=== PATIENT | male | born 1975 | race Caucasian/White ===

== ENCOUNTER 2020-04-01 13:20 | Inpatient (IN) | payer MEDICAID ==
[~2020-04-01] VITALS: Ht 172.7 cm; Wt 49.8 kg
[2020-04-01 14:43] LABS: BASOPHILS % (AUTO) 1 % (0-1); EOSINOPHILS % (AUTO) 1 % (1-7); LYMPHOCYTES % (AUTO) 40 % (22-44); MEAN CORPUSCULAR HEMOGLOBIN 35.2 pg (27.5-34.5); MEAN CORPUSCULAR HGB CONC 33.9 g/dL (33.2-36.2); MONOCYTES % (AUTO) 8 % (2-9); NEUTROPHILS % (AUTO) 49 % (42-75); PLATELET COUNT 106 x10^3/uL (130-400); RED BLOOD COUNT 3.51 x10^6/uL (4.38-5.82); RED CELL DISTRIBUTION WIDTH 14.5 % (9.4-14.8)
[2020-04-01 14:46] LABS: MD NO
[2020-04-01 14:53] LABS: ALBUMIN 4.4 g/dL (3.4-5.0); ANION GAP 8 mmol/L (5-15); CALCIUM 9.2 mg/dL (8.5-10.1); CHLORIDE 105 mmol/L (98-107)
[2020-04-01 14:57] LABS: ALANINE AMINOTRANSFERASE 87 U/L (12-78); ALKALINE PHOSPHATASE 162 U/L (45-117); BILIRUBIN,TOTAL 0.5 mg/dL (0.2-1.0); CREATININE 0.86 mg/dL (0.7-1.3); TOTAL PROTEIN 8.7 g/dL (6.4-8.2)
[2020-04-01 15:01] LABS: MICROSCOPIC AUTO
--- NOTE | 2020-04-01 15:15 | NUR ---
REPORT FROM ESHA MCGINNIS
--- NOTE | 2020-04-01 15:38 | NUR ---
PT RESTING IN BED, CALL LIGHT IN REACH. BLANKET PROVIDED.
--- NOTE | 2020-04-01 16:45 | NUR ---
ASSUMED CARE OF PT, PT RESTING ON GURNEY, CALL LIGHT WITHIN REACH.
--- NOTE | 2020-04-01 17:05 | NUR ---
REPORT RECIEVED FROM RAS CARMONA. ASSUMED CARE
[2020-04-01] MEDS ORDERED: SODIUM CHLORIDE FLUSH 10ML SYR IVF ONE (18:30)
--- NOTE | 2020-04-01 18:44 | NUR ---
PT AMBULATED TO BATHROOM. STEADY GAIT
[2020-04-01] MEDS ORDERED: LABETALOL 5MG/ML, 20ML IVPush PRN (20:00)
[2020-04-01] MEDS ORDERED: LACTATED RINGERS 1,000 ML IV SCH (20:00)
[2020-04-01] MEDS ORDERED: BISACODYL 10 MG SUPP PR PRN (20:00)
[2020-04-01] MEDS ORDERED: DIPHENHYDRAMINE 25 MG CAPSULE PO PRN (20:00)
[2020-04-01] MEDS ORDERED: ENALAPRILAT 1.25 MG/ML, 2ML IVPush PRN (20:00)
[2020-04-01] MEDS ORDERED: POLYETHYLENE GLYCOL 17 GM PACKET PO PRN (20:00)
[2020-04-01] MEDS ORDERED: ACETAMINOPHEN 325 MG TABLET PO PRN (20:00)
[2020-04-01] MEDS ORDERED: IBUPROFEN 600 MG TABLET PO PRN (20:00)
[2020-04-01] MEDS ORDERED: DOCUSATE 100 MG CAPSULE PO PRN (20:00)
[2020-04-01 20:45] VITALS: BP 116/88
[2020-04-01] MEDS ORDERED: hydrOXyzine 50MG TABLET PO PRN (21:00)
[2020-04-01] MEDS ORDERED: THIAMINE 100MG TABLET PO ONE (21:00)
[2020-04-01] MEDS: NYSTATIN 500,000 UNITS/5 ML UDC PO SCH (21:00)
[2020-04-01] MEDS ORDERED: OMEPRAZOLE 20 MG CAPSULE.DR PO ONE (21:00)
[2020-04-01] MEDS ORDERED: TRAZODONE 100MG TABLET PO SCH (21:00)
[2020-04-01] MEDS ORDERED: HYDR25PO5 PO (21:04)
[2020-04-01] MEDS ORDERED: FEXO180T72 PO (21:04)
[2020-04-01] MEDS ORDERED: TRAZ-175 PO (21:04)
[2020-04-01] MEDS ORDERED: OMEP-110 PO (21:04)
[2020-04-01] MEDS: HEPARIN 5,000 UNITS/ML, 1ML SQ SCH (22:15)
[2020-04-01] MEDS: ONDANSETRON 2MG/ML, 2ML IVPush PRN (22:20)
[2020-04-01] MEDS: FOLIC ACID 1 MG TABLET PO SCH (22:21)
[2020-04-02 00:26] VITALS: BP 119/76
[2020-04-02] MEDS: ONDANSETRON 2MG/ML, 2ML IVPush PRN ×2 (05:15→20:07)
[2020-04-02] MEDS: HEPARIN 5,000 UNITS/ML, 1ML SQ SCH (05:15)
[2020-04-02] MEDS: NYSTATIN 500,000 UNITS/5 ML UDC PO SCH ×4 (05:16→20:34)
[2020-04-02 05:45] LABS: BASOPHILS % (AUTO) 1 % (0-1); EOSINOPHILS % (AUTO) 0 % (1-7); LYMPHOCYTES % (AUTO) 32 % (22-44); MEAN PLATELET VOLUME 8.3 fL (7.4-10.4); MONOCYTES % (AUTO) 6 % (2-9); NEUTROPHILS % (AUTO) 60 % (42-75); PLATELET COUNT 93 x10^3/uL (130-400); RED BLOOD COUNT 3.43 x10^6/uL (4.38-5.82); RED CELL DISTRIBUTION WIDTH 14.6 % (9.4-14.8)
[2020-04-02 05:50] LABS: ALANINE AMINOTRANSFERASE 77 U/L (12-78); ALBUMIN 4.4 g/dL (3.4-5.0); ANION GAP 15 mmol/L (5-15); CALCIUM 9.8 mg/dL (8.5-10.1); CHLORIDE 104 mmol/L (98-107)
[2020-04-02 05:52] LABS: ALKALINE PHOSPHATASE 148 U/L (45-117); BILIRUBIN,TOTAL 1.1 mg/dL (0.2-1.0); CREATININE 0.87 mg/dL (0.7-1.3); TOTAL PROTEIN 8.8 g/dL (6.4-8.2)
[2020-04-02 05:53] LABS: MD NO
[2020-04-02] MEDS ORDERED: MAGNESIUM SULFATE PMX 2GM/50ML 50 ML IV ONE (07:00)
[2020-04-02] MEDS ORDERED: LORazepam 2 MG/ML, 1ML IV PRN ×2 (08:00)
[2020-04-02] MEDS ORDERED: ONDANSETRON 2MG/ML, 2ML IVPush ONE (08:00)
[2020-04-02] MEDS ORDERED: LORazepam 0.5MG TABLET PO PRN (08:00)
[2020-04-02] MEDS ORDERED: LORazepam 1MG TABLET PO PRN ×2 (08:00)
[2020-04-02 08:03] VITALS: BP 157/87
[2020-04-02] MEDS: SENNA/DOCUSATE TABLET PO SCH (11:41)
[2020-04-02] MEDS: FOLIC ACID 1 MG TABLET PO SCH (11:42)
[2020-04-02] MEDS: PANTOPRAZOLE 40 MG IV IVPush SCH (11:42)
[2020-04-02] MEDS: POTASSIUM CHLORIDE 20 MEQ, MAGNESIUM SULFATE 1 GM, FOLIC ACID 1 MG, THIAMINE 200 MG, MV... IV SCH (11:56)
[2020-04-02 13:58] VITALS: BP 152/86
[2020-04-02] MEDS: CEFTRIAXONE PMX 2GM/50ML 50 ML IVPB SCH (14:36)
[2020-04-02] MEDS: LORazepam 2 MG/ML, 1ML IV PRN ×2 (15:06→20:42)
[2020-04-02] MEDS: METRONIDAZOLE PMX 500MG/100ML 100 ML IV SCH (15:50)
[2020-04-02 19:47] VITALS: BP 126/83
[2020-04-02] MEDS ORDERED: LACTATED RINGERS 1,000 ML IV SCH (20:00)
[2020-04-02] MEDS ORDERED: HEPARIN 5,000 UNITS/ML, 1ML SQ SCH (20:00)
[2020-04-02] MEDS: KETOROLAC 30 MG/1 ML IV PRN (20:34)
[2020-04-03] MEDS: LORazepam 2 MG/ML, 1ML IV PRN ×8 (00:02→23:16)
[2020-04-03] MEDS: METRONIDAZOLE PMX 500MG/100ML 100 ML IV SCH ×3 (00:22→16:17)
[2020-04-03 01:20] VITALS: BP 134/84
[2020-04-03] MEDS: NYSTATIN 500,000 UNITS/5 ML UDC PO SCH ×4 (04:45→21:00)
[2020-04-03] MEDS: KETOROLAC 30 MG/1 ML IV PRN (04:45)
[2020-04-03] MEDS: NICOTINE 14MG/24 HR PATCH.TD24 TD SCH ×2 (05:18→08:49)
[2020-04-03] MEDS: D5%-0.9% NACL 1,000 ML IV SCH (06:47)
[2020-04-03] MEDS ORDERED: MAGNESIUM SULFATE PMX 4GM/100M 100 ML IV ONE (07:30)
[2020-04-03 08:04] LABS: BASOPHILS % (AUTO) 0 % (0-1); EOSINOPHILS % (AUTO) 1 % (1-7); LYMPHOCYTES % (AUTO) 20 % (22-44); MEAN CORPUSCULAR HEMOGLOBIN 35.6 pg (27.5-34.5); MEAN PLATELET VOLUME 8.6 fL (7.4-10.4); MONOCYTES % (AUTO) 7 % (2-9); NEUTROPHILS % (AUTO) 72 % (42-75); PLATELET COUNT 79 x10^3/uL (130-400); RED BLOOD COUNT 3.25 x10^6/uL (4.38-5.82); RED CELL DISTRIBUTION WIDTH 14.4 % (9.4-14.8)
[2020-04-03 08:08] VITALS: BP 153/99
[2020-04-03 08:13] LABS: MD NO
[2020-04-03 08:14] LABS: ALANINE AMINOTRANSFERASE 63 U/L (12-78); ALBUMIN 4.2 g/dL (3.4-5.0); ANION GAP 10 mmol/L (5-15); CALCIUM 9.8 mg/dL (8.5-10.1); CHLORIDE 109 mmol/L (98-107); CREATININE 0.91 mg/dL (0.7-1.3)
[2020-04-03 08:18] LABS: PROTHROMBIN TIME 10.6 Seconds (9.6-11.5)
[2020-04-03 08:40] LABS: ALKALINE PHOSPHATASE 124 U/L (45-117); TOTAL PROTEIN 8.2 g/dL (6.4-8.2)
[2020-04-03] MEDS: FOLIC ACID 1 MG TABLET PO SCH (08:48)
[2020-04-03] MEDS: SENNA/DOCUSATE TABLET PO SCH (08:49)
[2020-04-03] MEDS: PANTOPRAZOLE 40 MG IV IVPush SCH (08:59)
[2020-04-03] MEDS ORDERED: THIAMINE 200 MG in SODIUM CHLORIDE 0.9% 50 ML IV ONE (10:30)
[2020-04-03] MEDS: POTASSIUM CHLORIDE 20 MEQ, MAGNESIUM SULFATE 1 GM, FOLIC ACID 1 MG, THIAMINE 200 MG, MV... IV SCH (10:48)
[2020-04-03] MEDS ORDERED: CHLORHEXIDINE 15 ML UDC ONE (11:18)
[2020-04-03] MEDS ORDERED: CHLORHEXIDINE 15 ML UDC MM ONE (11:30)
[2020-04-03] MEDS ORDERED: MIDAZOLAM 1 MG/ML, 2ML ONE (11:33)
[2020-04-03] MEDS ORDERED: FENTANYL PF 250 MCG/5ML ONE (11:33)
[2020-04-03] MEDS ORDERED: PROMETHAZINE 25 MG/ML, 1ML IVPush PRN (12:00)
[2020-04-03] MEDS ORDERED: DIPHENHYDRAMINE 50 MG/ML, 1ML IVPush PRN (12:00)
[2020-04-03] MEDS ORDERED: FENTANYL PF 100 MCG/2ML IV PRN (12:00)
[2020-04-03] MEDS ORDERED: HYDROmorphone 1 MG/ML, 1ML INJ IVPush PRN (12:00)
[2020-04-03] MEDS ORDERED: OXYcodone 5 MG/5 ML ORAL.SOL UDC PO PRN (12:00)
[2020-04-03] MEDS ORDERED: MEPERIDINE/PF 25MG/0.5ML IVPush PRN (12:00)
[2020-04-03] MEDS ORDERED: HALOPERIDOL 5 MG/ML IV PRN (12:00)
[2020-04-03] MEDS ORDERED: hydrALAzine 20 MG/ML, 1ML IV PRN (12:00)
[2020-04-03] MEDS ORDERED: ROCURONIUM 10MG/ML,5ML ONE (12:02)
[2020-04-03] MEDS ORDERED: DEXAMETHASONE 4 MG/ML, 1ML ONE (12:02)
[2020-04-03] MEDS ORDERED: SUCCINYLCHOLINE 20 MG/ML, 10ML ONE (12:02)
[2020-04-03] MEDS ORDERED: ONDANSETRON 2MG/ML, 2ML ONE (12:02)
[2020-04-03] MEDS ORDERED: PROPOFOL 10 MG/ML, 20ML ONE (12:02)
[2020-04-03] MEDS ORDERED: KETOROLAC 30 MG/1 ML ONE (12:13)
[2020-04-03] MEDS ORDERED: BUPIVACAINE/PF 0.25% INFIL ONE (12:18)
[2020-04-03] MEDS ORDERED: SUGAMMADEX 200 MG/2 ML IVPush ONE (12:19)
[2020-04-03] MEDS ORDERED: TRANEXAMIC ACID 100 MG/ML, 10ML ONE (12:50)
[2020-04-03] MEDS ORDERED: LABETALOL 5MG/ML, 20ML ONE (13:11)
[2020-04-03] MEDS: LABETALOL 5MG/ML, 20ML IV PRN ×3 (13:13→13:37)
[2020-04-03] MEDS ORDERED: morphine SULFATE 10 MG/ML, 1ML IV PRN (14:30)
[2020-04-03] MEDS: CEFTRIAXONE PMX 2GM/50ML 50 ML IVPB SCH (14:50)
[2020-04-03 15:54] VITALS: BP 124/92
[2020-04-03 19:49] VITALS: BP 88/71
[2020-04-03] MEDS: ONDANSETRON 2MG/ML, 2ML IVPush PRN (21:26)
[2020-04-04] VITALS (8 sets, daily range): BP systolic 104–132; BP diastolic 71–90
[2020-04-04] MEDS: METRONIDAZOLE PMX 500MG/100ML 100 ML IV SCH ×4 (00:03→23:56)
[2020-04-04 03:27] LABS: BASOPHILS % (AUTO) 0 % (0-1); EOSINOPHILS % (AUTO) 1 % (1-7); LYMPHOCYTES % (AUTO) 25 % (22-44); MEAN CORPUSCULAR HEMOGLOBIN 35.3 pg (27.5-34.5); MEAN CORPUSCULAR HGB CONC 33.3 g/dL (33.2-36.2); MEAN PLATELET VOLUME 9.4 fL (7.4-10.4); MONOCYTES % (AUTO) 7 % (2-9); NEUTROPHILS % (AUTO) 66 % (42-75); PLATELET COUNT 76 x10^3/uL (130-400); RED BLOOD COUNT 2.18 x10^6/uL (4.38-5.82); RED CELL DISTRIBUTION WIDTH 13.9 % (9.4-14.8)
[2020-04-04 03:33] LABS: MD NO
[2020-04-04 03:34] LABS: ALANINE AMINOTRANSFERASE 89 U/L (12-78); ALBUMIN 3.3 g/dL (3.4-5.0); ANION GAP 7 mmol/L (5-15); CALCIUM 8.6 mg/dL (8.5-10.1); CHLORIDE 111 mmol/L (98-107); CREATININE 0.82 mg/dL (0.7-1.3)
[2020-04-04 03:37] LABS: ALKALINE PHOSPHATASE 97 U/L (45-117); BILIRUBIN,TOTAL 0.8 mg/dL (0.2-1.0); TOTAL PROTEIN 6.4 g/dL (6.4-8.2)
[2020-04-04] MEDS: ONDANSETRON 2MG/ML, 2ML IVPush PRN ×2 (04:14→21:18)
[2020-04-04] MEDS: NYSTATIN 500,000 UNITS/5 ML UDC PO SCH ×4 (06:32→21:18)
[2020-04-04] MEDS: LORazepam 2 MG/ML, 1ML IV PRN (06:32)
[2020-04-04] MEDS: FOLIC ACID 1 MG TABLET PO SCH (08:11)
[2020-04-04] MEDS: SENNA/DOCUSATE TABLET PO SCH (08:11)
[2020-04-04] MEDS: NICOTINE 14MG/24 HR PATCH.TD24 TD SCH (08:11)
[2020-04-04] MEDS: PANTOPRAZOLE 40 MG IV IVPush SCH (08:11)
[2020-04-04] MEDS: THIAMINE 100 MG in SODIUM CHLORIDE 0.9% 50 ML IV SCH (09:23)
[2020-04-04] MEDS: POTASSIUM CHLORIDE 20 MEQ, MAGNESIUM SULFATE 1 GM, FOLIC ACID 1 MG, THIAMINE 200 MG, MV... IV SCH (09:23)
[2020-04-04] MEDS: HYDROcodone/APAP 5/325 TABLET PO PRN ×2 (11:44→21:18)
[2020-04-04 12:19] LABS: BASOPHILS % (AUTO) 0 % (0-1); EOSINOPHILS % (AUTO) 2 % (1-7); LYMPHOCYTES % (AUTO) 27 % (22-44); MEAN CORPUSCULAR HEMOGLOBIN 35.7 pg (27.5-34.5); MEAN CORPUSCULAR HGB CONC 33.1 g/dL (33.2-36.2); MEAN PLATELET VOLUME 9.5 fL (7.4-10.4); MONOCYTES % (AUTO) 8 % (2-9); NEUTROPHILS % (AUTO) 63 % (42-75); PLATELET COUNT 71 x10^3/uL (130-400); RED BLOOD COUNT 1.85 x10^6/uL (4.38-5.82)
[2020-04-04 13:56] LABS: MD SCAN
[2020-04-04] MEDS: CEFTRIAXONE PMX 2GM/50ML 50 ML IVPB SCH (16:48)
[2020-04-04] MEDS: D5%-0.9% NACL 1,000 ML IV SCH (23:56)
[2020-04-05 02:39] VITALS: BP 153/89
[2020-04-05] MEDS: HYDROcodone/APAP 5/325 TABLET PO PRN ×3 (04:00→18:40)
[2020-04-05 04:55] LABS: BASOPHILS % (AUTO) 1 % (0-1); EOSINOPHILS % (AUTO) 2 % (1-7); LYMPHOCYTES % (AUTO) 27 % (22-44); MEAN CORPUSCULAR HEMOGLOBIN 33.3 pg (27.5-34.5); MEAN CORPUSCULAR HGB CONC 34.1 g/dL (33.2-36.2); MEAN PLATELET VOLUME 8.4 fL (7.4-10.4); MONOCYTES % (AUTO) 9 % (2-9); NEUTROPHILS % (AUTO) 62 % (42-75); PLATELET COUNT 80 x10^3/uL (130-400); RED BLOOD COUNT 2.63 x10^6/uL (4.38-5.82); RED CELL DISTRIBUTION WIDTH 20.2 % (9.4-14.8)
[2020-04-05 05:08] LABS: ALBUMIN 3.7 g/dL (3.4-5.0); ANION GAP 9 mmol/L (5-15); CALCIUM 8.8 mg/dL (8.5-10.1); CHLORIDE 104 mmol/L (98-107)
[2020-04-05 05:12] LABS: ALANINE AMINOTRANSFERASE 131 U/L (12-78); ALKALINE PHOSPHATASE 122 U/L (45-117); CREATININE 0.69 mg/dL (0.7-1.3); TOTAL PROTEIN 7.2 g/dL (6.4-8.2)
[2020-04-05 05:51] LABS: MD SCAN
[2020-04-05 06:53] VITALS: BP 124/85
[2020-04-05] MEDS: NYSTATIN 500,000 UNITS/5 ML UDC PO SCH ×4 (07:00→19:56)
[2020-04-05] MEDS: NICOTINE 14MG/24 HR PATCH.TD24 TD SCH (07:27)
[2020-04-05] MEDS: PANTOPRAZOLE 40 MG IV IVPush SCH (07:27)
[2020-04-05] MEDS: FOLIC ACID 1 MG TABLET PO SCH (07:27)
[2020-04-05] MEDS: SENNA/DOCUSATE TABLET PO SCH (07:28)
[2020-04-05] MEDS: METRONIDAZOLE PMX 500MG/100ML 100 ML IV SCH ×2 (07:28→18:33)
[2020-04-05] MEDS ORDERED: POTASSIUM CHLORIDE 20 MEQ TAB.ER.PRT PO ONE (08:00)
[2020-04-05] MEDS: POTASSIUM CHLORIDE 20 MEQ, MAGNESIUM SULFATE 1 GM, FOLIC ACID 1 MG, THIAMINE 200 MG, MV... IV SCH (10:52)
[2020-04-05] MEDS: THIAMINE 100 MG in SODIUM CHLORIDE 0.9% 50 ML IV SCH (10:52)
[2020-04-05] MEDS: ONDANSETRON 2MG/ML, 2ML IVPush PRN ×2 (12:08→18:40)
[2020-04-05 12:27] VITALS: BP 126/85
[2020-04-05] MEDS: CEFTRIAXONE PMX 2GM/50ML 50 ML IVPB SCH (13:59)
[2020-04-05 18:50] VITALS: BP 121/86
[2020-04-06 00:39] VITALS: BP 137/92
[2020-04-06] MEDS: HYDROcodone/APAP 5/325 TABLET PO PRN ×2 (01:02→05:47)
[2020-04-06] MEDS: D5%-0.9% NACL 1,000 ML IV SCH (01:29)
[2020-04-06] MEDS: METRONIDAZOLE PMX 500MG/100ML 100 ML IV SCH ×2 (02:40→10:30)
[2020-04-06] MEDS: NYSTATIN 500,000 UNITS/5 ML UDC PO SCH (05:47)
[2020-04-06 05:54] LABS: BASOPHILS % (AUTO) 1 % (0-1); EOSINOPHILS % (AUTO) 2 % (1-7); LYMPHOCYTES % (AUTO) 27 % (22-44); MEAN CORPUSCULAR HEMOGLOBIN 33.5 pg (27.5-34.5); MEAN CORPUSCULAR HGB CONC 33.8 g/dL (33.2-36.2); MEAN PLATELET VOLUME 8.3 fL (7.4-10.4); MONOCYTES % (AUTO) 12 % (2-9); NEUTROPHILS % (AUTO) 59 % (42-75); PLATELET COUNT 98 x10^3/uL (130-400); RED BLOOD COUNT 2.33 x10^6/uL (4.38-5.82); RED CELL DISTRIBUTION WIDTH 19.1 % (9.4-14.8)
[2020-04-06 06:00] LABS: ALBUMIN 3.6 g/dL (3.4-5.0); ANION GAP 6 mmol/L (5-15); CHLORIDE 102 mmol/L (98-107)
[2020-04-06 06:01] LABS: MD NO
[2020-04-06 06:05] LABS: ALANINE AMINOTRANSFERASE 100 U/L (12-78); ALKALINE PHOSPHATASE 117 U/L (45-117); CREATININE 0.56 mg/dL (0.7-1.3)
[2020-04-06] MEDS ORDERED: POTASSIUM CHLORIDE 20 MEQ TAB.ER.PRT PO ONE (07:30)
[2020-04-06] MEDS: NICOTINE 14MG/24 HR PATCH.TD24 TD SCH (08:33)
[2020-04-06] MEDS: FOLIC ACID 1 MG TABLET PO SCH (08:33)
[2020-04-06] MEDS: PANTOPRAZOLE 40 MG IV IVPush SCH (08:33)
[2020-04-06] MEDS: SENNA/DOCUSATE TABLET PO SCH (08:33)
[2020-04-06] MEDS: POTASSIUM CHLORIDE 20 MEQ, MAGNESIUM SULFATE 1 GM, FOLIC ACID 1 MG, THIAMINE 200 MG, MV... IV SCH (08:37)
[2020-04-06] MEDS: THIAMINE 100 MG in SODIUM CHLORIDE 0.9% 50 ML IV SCH (08:37)
[2020-04-06] MEDS ORDERED: FOLI-17 PO (09:45)
[2020-04-06 09:59] VITALS: BP 134/93
== END 2020-04-06 10:55 | disposition home or self-care (01) | DRG 418 ==
LOC: EDSEX 13:20 → ED 15:50 → EDIP 18:23 → 4NW 19:28 → DCLOUNGE 04-06 10:48
PROVIDERS: ADMIT Internal Medicine; ATTEND Hospitalist
PROC: 0FT44ZZ Resection of Gallbladder, Percutaneous Endoscopic Approach (ICD-10-PCS; principal; 2020-04-03 18:00)
PROC: 30233N1 Transfusion of Nonautologous Red Blood Cells into Peripheral Vein, Percutaneous Approach (ICD-10-PCS; 2020-04-04)
DX: K80.63 Calculus of gallbladder and bile duct with acute cholecystitis with obstruction (principal); B37.0 Candidal stomatitis; F10.239 Alcohol dependence with withdrawal, unspecified; Z68.1 Body mass index [BMI] 19.9 or less, adult; D64.9 Anemia, unspecified; D69.6 Thrombocytopenia, unspecified; D75.89 Other specified diseases of blood and blood-forming organs; F17.210 Nicotine dependence, cigarettes, uncomplicated; F41.9 Anxiety disorder, unspecified; K21.9 Gastro-esophageal reflux disease without esophagitis; K70.10 Alcoholic hepatitis without ascites; Z20.828 Contact with and (suspected) exposure to other viral communicable diseases; Z83.3 Family history of diabetes mellitus
CPT/HCPCS: 36415; 87806; 96374; 99285; J7042; J7121; 71045; 76700; 78226; 80053; 81001; 82607; 82962; 82977; 83690; 83735; 84100; 85014; 85018; 85025; 85610; 86706; 86709; 86850; 86900; 86923; 87340; 87635; 88304; G0378; J0696; J1100; J1644; J1885; J2250; J2405; J2704; J3010; J3411; J3475; J3480; A9537; C9113; G0475; J0330; J2060; J2270; J7120; P9016

== ENCOUNTER 2020-04-13 11:02 | Emergency (ER) | payer MEDICAID ==
[~2020-04-13] VITALS: Ht 172.7 cm; Wt 50.0 kg
[~2020-04-13 11:02] MED LIST: FEXO180T72 PO; FOLI-17 PO; HYDR25PO5 PO; OMEP-110 PO; TRAZ-175 PO
[2020-04-13] MEDS ORDERED: SODIUM CHLORIDE FLUSH 10ML SYR IVF ONE (11:30)
[2020-04-13 11:38] LABS: BASOPHILS % (AUTO) 0 % (0-1); EOSINOPHILS % (AUTO) 2 % (1-7); LYMPHOCYTES % (AUTO) 20 % (22-44); MEAN CORPUSCULAR HGB CONC 33.4 g/dL (33.2-36.2); MONOCYTES % (AUTO) 8 % (2-9); NEUTROPHILS % (AUTO) 69 % (42-75); PLATELET COUNT 421 x10^3/uL (130-400); RED BLOOD COUNT 2.94 x10^6/uL (4.38-5.82); RED CELL DISTRIBUTION WIDTH 17.9 % (9.4-14.8)
[2020-04-13 11:42] LABS: MD NO
[2020-04-13 11:46] LABS: INTERNATIONAL NORMALIZED RATIO 1.01 (0.93-1.1); PROTHROMBIN TIME 10.7 Seconds (9.6-11.5)
[2020-04-13 11:49] LABS: % IRON SATURATION 22 % (20-55); ALANINE AMINOTRANSFERASE 50 U/L (12-78); ALBUMIN 3.5 g/dL (3.4-5.0); ANION GAP 6 mmol/L (5-15); CALCIUM 8.8 mg/dL (8.5-10.1); CHLORIDE 111 mmol/L (98-107); CREATININE 0.62 mg/dL (0.7-1.3); IRON LEVEL 56 mcg/dL (65-175); TOTAL IRON BINDING CAPACITY 250 mcg/dL (250-450)
[2020-04-13] MEDS ORDERED: MORPHINE SULFATE 4 MG/ML, 1ML ONE (11:52)
[2020-04-13 11:53] LABS: ALKALINE PHOSPHATASE 189 U/L (45-117); BILIRUBIN,TOTAL 0.5 mg/dL (0.2-1.0); TOTAL PROTEIN 7.5 g/dL (6.4-8.2)
[2020-04-13] MEDS ORDERED: MORPHINE SULFATE 4 MG/ML, 1ML IVPush ONE (12:00)
[2020-04-13] MEDS ORDERED: OMNIPAQUE 350 MG/ML, 100ML BOTTLE ONE (12:40)
[2020-04-13 13:30] VITALS: BP 103/69
--- NOTE | 2020-04-13 13:30 | NUR ---
Patient given discharge instructions and they have confirmed that they understand the instructions. Patient ambulatory with steady gait.
== END 2020-04-13 13:32 | disposition home or self-care (01) ==
LOC: ED 13:10
DX: S30.1XXA Contusion of abdominal wall, initial encounter (principal); F10.229 Alcohol dependence with intoxication, unspecified; R10.11 Right upper quadrant pain; G89.28 Other chronic postprocedural pain; D18.09 Hemangioma of other sites; Z90.49 Acquired absence of other specified parts of digestive tract; X58.XXXA Exposure to other specified factors, initial encounter; Y93.89 Activity, other specified; Y92.89 Other specified places as the place of occurrence of the external cause; Y99.8 Other external cause status; Y90.9 Presence of alcohol in blood, level not specified
CPT/HCPCS: 36415; 74177; 80053; 80307; 83540; 83550; 83690; 85025; 85610; 86850; 86900; 96374; 99285; J2270; Q9967